=== PATIENT | male | born 1990 | race Caucasian/White ===

== ENCOUNTER 2017-02-15 00:03 | Emergency (ER) | payer OTHER ==
[2017-02-16 00:25] LABS: BASOPHIL 0.2 % (0-2); EOSINOPHIL 0.3 % (0-5); HCT 49.9 % (42.0-52.0); HGB 17.1 g/dl (13.2-18.0); LYMPHOCYTE 10.4 % (15-48); MCH 29.2 pg (25.0-31.0); MCHC 34.3 g/dL (32.0-36.0); MCV 85.2 fL (78.0-100.0); MONOCYTE 8.6 % (0-12); MPV 9.5 fL (6.0-9.5); NEUTROPHIL 80.5 % (41-80); PLT 282 K/uL (150-400); RBC 5.86 M/uL (4.70-6.00); WBC 9.1 K/uL (4.0-10.5)
[2017-02-16 00:42] LABS: ALBUMIN 4.8 g/dL (3.5-5.0); BILIRUBIN - TOTAL 1.1 mg/dL (0.1-1.0); CREATININE 1.2 mg/dL (0.7-1.2); GLOBULIN (CALCULATION) 2.5 g/dL (2.2-4.2); POTASSIUM 3.8 mmol/L (3.5-5.1); TOTAL PROTEIN 7.3 g/dL (6.4-8.3)
[2017-02-16 01:05] LABS: BILIRUBIN NEGATIVE (NEGATIVE); BLOOD NEGATIVE Ery/uL (NEGATIVE); CLARITY CLEAR (CLEAR); COLOR YELLOW (YELLOW); GLUCOSE (U) NORMAL (NORMAL); KETONE (U) TRACE mg/dL (NEGATIVE); LEUKOCYTES NEGATIVE Leu/uL (NEGATIVE); NITRITE NEGATIVE (NEGATIVE); PROTEIN 1+ mg/dL (NEGATIVE); SPECIFIC GRAVITY >=1.030 (1.001-1.030)
[2017-02-16 01:10] LABS: BACTERIA TRACE; MUCOUS LARGE; SQUAMOUS EPITHELIAL CELLS RARE
== END 2017-02-16 04:18 | disposition home or self-care (01) ==
LOC: FER 00:03
PROVIDERS: Emergency Medicine Emergency Medical Services
DX: R10.84 Generalized abdominal pain (principal); N50.3 Cyst of epididymis; R11.0 Nausea; M54.9 Dorsalgia, unspecified; E86.9 Volume depletion, unspecified; Z88.1 Allergy status to other antibiotic agents
CPT/HCPCS: 36415; 76870; 80053; 81001; 82150; 83690; 85025; 87804; 87899; J1885; J2270; J2405